=== PATIENT | female | born 1975 | race Caucasian/White ===

== ENCOUNTER 2021-05-19 14:42 | Emergency (ER) | payer OTHER ==
[~2021-05-19] VITALS: Ht 160 cm; Wt 64.0 kg
[2021-05-19] MEDS ORDERED: ACETAMINOPHEN 500 MG TAB PO ONE (18:00)
[2021-05-19 18:19] VITALS: BP 95/47
== END 2021-05-19 19:05 | disposition home or self-care (01) ==
LOC: ER 14:42
DX: S16.1XXA Strain of muscle, fascia and tendon at neck level, initial encounter (principal); S39.012A Strain of muscle, fascia and tendon of lower back, initial encounter; Z88.6 Allergy status to analgesic agent; Z88.0 Allergy status to penicillin; Z88.2 Allergy status to sulfonamides; V49.49XA Driver injured in collision with other motor vehicles in traffic accident, initial encounter; Y93.89 Activity, other specified; Y92.488 Other paved roadways as the place of occurrence of the external cause; Y99.8 Other external cause status
CPT/HCPCS: 72040; 72100

== ENCOUNTER 2021-12-27 09:32 | Emergency (ER) | payer OTHER ==
[~2021-12-27] VITALS: Ht 160 cm; Wt 61.2 kg
[2021-12-27 10:13] VITALS: BP 109/70
[2021-12-27] MEDS ORDERED: IBU600T PO (11:42)
[2021-12-27] MEDS ORDERED: KETOROLAC TROMETH 60MG/2ML VIAL IM ONE (11:45)
== END 2021-12-27 15:09 | disposition home or self-care (01) ==
LOC: ER 09:32
DX: S16.1XXA Strain of muscle, fascia and tendon at neck level, initial encounter (principal); M79.10 Myalgia, unspecified site; Z88.0 Allergy status to penicillin; Z88.2 Allergy status to sulfonamides; Z88.8 Allergy status to other drugs, medicaments and biological substances; X58.XXXA Exposure to other specified factors, initial encounter; Y93.89 Activity, other specified; Y92.89 Other specified places as the place of occurrence of the external cause; Y99.8 Other external cause status
CPT/HCPCS: 72125; 96372; 99284; J1885

== ENCOUNTER 2022-07-13 08:27 | Emergency (ER) | payer OTHER ==
[~2022-07-13] VITALS: Ht 160 cm; Wt 66.0 kg
[~2022-07-13 08:27] MED LIST: IBU600T PO
[2022-07-13 09:10] VITALS: BP 131/74
[2022-07-13] MEDS ORDERED: KETOROLAC TROMETH 60MG/2ML VIAL IM ONE (09:45)
[2022-07-13] MEDS ORDERED: METHOCARBAMOL 500 MG TAB PO ONE (09:45)
[2022-07-13] MEDS ORDERED: CYCL-839 PO (09:52)
[2022-07-13] MEDS ORDERED: IBUP800T27 PO (09:52)
== END 2022-07-13 10:02 | disposition home or self-care (01) ==
LOC: ER 08:27
DX: G89.29 Other chronic pain (principal); M54.50 Low back pain, unspecified; Z79.1 Long term (current) use of non-steroidal anti-inflammatories (NSAID); Z79.899 Other long term (current) drug therapy; Z88.0 Allergy status to penicillin; Z88.2 Allergy status to sulfonamides; Z88.8 Allergy status to other drugs, medicaments and biological substances
CPT/HCPCS: 96372; 99283; J1885